=== PATIENT | male | born 1950 | race Caucasian/White ===

== ENCOUNTER 2017-04-28 12:50 | Inpatient (IN) | payer OTHER ==
[~2017-04-28] VITALS: Ht 172.7 cm; Wt 65.0 kg
[2017-04-28] MEDS ORDERED: SOD CHLORIDE 0.9% 500 ML IV STA (13:06)
[2017-04-28] MEDS ORDERED: ASPIRIN 81 MG TAB PO ONE (13:30)
[2017-04-28 13:35] LABS: BASOPHILS % 0.3 % (0.0-2.0); EOSINOPHILS # 0.2 10^3/ul (0.0-0.5); EOSINOPHILS % 1.7 % (0.0-7.0); HEMATOCRIT 42.7 % (42.0-52.0); HEMOGLOBIN 14.4 g/dl (14.0-18.0); LYMPHOCYTES # 1.8 10^3/ul (0.8-2.9); LYMPHOCYTES % 16.9 % (15.0-51.0); MEAN CORPUSCULAR HEMOGLOBIN 29.6 pg (29.0-33.0); MEAN CORPUSCULAR HGB CONC 33.7 g/dl (32.0-37.0); MEAN CORPUSCULAR VOLUME 87.7 fl (82.0-101.0); MEAN PLATELET VOLUME 8.6 fl (7.4-10.4); MONOCYTE # 0.5 10^3/ul (0.3-0.9); MONOCYTES % 4.6 % (0.0-11.0); NEUTROPHIL # 8.2 10^3/ul (1.6-7.5); NEUTROPHILS % 75.8 % (39.0-77.0); PLATELET COUNT 248 10^3/UL (140-415); RED BLOOD COUNT 4.87 10^6/ul (4.70-6.10); RED CELL DISTRIBUTION WIDTH 12.4 % (11.5-14.5); WHITE BLOOD COUNT 10.8 10^3/ul (4.8-10.8)
--- NOTE | 2017-04-28 13:37 | RADRPT ---
PROCEDURE: XR Chest. CLINICAL INDICATION: chest pain TECHNIQUE: Single frontal view of the chest was obtained COMPARISON: None FINDINGS: The heart and mediastinum are within normal limits. The lungs are clear. There is no pleural effusion or pneumothorax. RPTAT: AA IMPRESSION: No acute disease. .Romeml Dillon MD, Date Time Electronically viewed and signed by .Rommel Dillon MD, on 04/28/2017 13:37 .S/
--- NOTE | 2017-04-28 13:38 | ERD ---
ER Documentation Chief Complaint Chief Complaint cp and pressure that started this am at 1100 HPI 67-year-old pressure-like chest pain beginning at rest lasting for about 45 minutes, was substernal across the chest otherwise nonradiating and nonexertional. He denies previous episodes, denies fevers or chills, no cough, no vomiting or diarrhea. It occurred while he was driving his car, he called 911 and EMS administered aspirin and nitroglycerin with some relief and transported him here otherwise without complications. ROS All systems reviewed and are negative except as per history of present illness. Allergies Allergies: Coded Allergies: No Known Allergy (Unverified , 04/28/17) PMhx/Soc Hypertension Hx Alcohol Use: No Hx Substance Use: No Hx Tobacco Use: No Smoking Status: Unknown if ever smoked FmHx Family History: No diabetes Physical Exam Vitals Vital Signs Date Time Temp Pulse Resp B/P Pulse Ox O2 Delivery O2 Flow Rate FiO2 04/28/17 14:43 61 20 104/64 96 Room Air 04/28/17 13:26 97.9 71 12 115/73 94 Physical Exam GENERAL: Well-developed, well-nourished, well-hydrated, in no apparent distress , looks nontoxic in appearance HEENT: Moist mucous membranes, pink conjunctiva, no cervical spine tenderness or step-off deformities, no goiter, no jaundice or icterus, extraocular movements intact without pain. No submandibular induration, and no pharyngeal erythema NEURO: Alert and oriented 3, cranial nerves II through XII intact bilaterally, pupils equal round reactive to light, no focal deficits or facial asymmetry, sensation intact distally Strength 5/5 in upper and lower extremities bilaterally CARDIAC: Regular rate and rhythm, no murmurs rubs or gallops LUNGS: Clear bilaterally no wheezing crackles or stridor ABDOMEN: Soft nontender, no guarding, no rigidity, no rebound, no psoas sign no obturator sign. Normoactive bowel sounds SKIN: Warm and dry to touch, no abrasions, contusions, or hematomas, no lacerations, no ecchymosis, no target lesions, and without ulcers EXTREMITIES: No clubbing cyanosis or edema, calves are bilaterally symmetrical, no Homans sign, no popliteal cord sign. Distal pulses equal and bilateral PSYCH: Normal affect without agitation or irritability Result Diagram: 04/28/17 1310 04/28/17 1310 Results 24 hrs Laboratory Tests Test 04/28/17 13:10 White Blood Count 10.810^3/ul Red Blood Count 4.8710^6/ul Hemoglobin 14.4g/dl Hematocrit 42.7% Mean Corpuscular Volume 87.7fl Mean Corpuscular Hemoglobin 29.6pg Mean Corpuscular Hemoglobin Concent 33.7g/dl Red Cell Distribution Width 12.4% Platelet Count 60994^3/UL Mean Platelet Volume 8.6fl Neutrophils % 75.8% Lymphocytes % 16.9% Monocytes % 4.6% Eosinophils % 1.7% Basophils % 0.3% Nucleated Red Blood Cells % 0.0/100WBC Neutrophils # 8.210^3/ul Lymphocytes # 1.810^3/ul Monocytes # 0.510^3/ul Eosinophils # 0.210^3/ul Basophils # 0.010^3/ul Nucleated Red Blood Cells # 0.010^3/ul Sodium Level 141mmol/L Potassium Level 3.6mmol/L Chloride Level 106mmol/L Carbon Dioxide Level 27mmol/L Anion Gap 12 Blood Urea Nitrogen 12mg/dl Creatinine 0.87mg/dl Glucose Level 164mg/dl Calcium Level 9.3mg/dl Total Bilirubin 0.7mg/dl Direct Bilirubin 0.10mg/dl Indirect Bilirubin 0.6mg/dl Aspartate Amino Transf (AST/SGOT) 187IU/L Alanine Aminotransferase (ALT/SGPT) 137IU/L Alkaline Phosphatase 111IU/L Troponin I < 0.012ng/ml Total Protein 7.0g/dl Albumin 4.0g/dl Globulin 3.00g/dl Albumin/Globulin Ratio 1.33 Lipase Pending Current Medications Medications (Trade) Dose Ordered Sig/Bernie Route PRN Reason Start Time Stop Time Status Last Admin Dose Admin Sodium Chloride (NS) 500 ml @ 500 mls/hr Q1H STAT IV 04/28/17 13:06 04/28/17 14:05 DC 04/28/17 13:25 Aspirin (Aspirin) 324 mg ONCE ONCE PO 04/28/17 13:30 04/28/17 13:31 DC 04/28/17 13:25 Procedures/MDM IV line was established patient was placed on recovery coordinator rhythm strip revealed a sinus rhythm at about 70 bpm with upright P and T waves. Patient was afebrile EKG performed, read by me revealed a normal sinus rhythm at 70 bpm, first- degree atrial ventricular block at 208 ms, left axis deviation, narrow QRS complex, no concerning ST elevations or depressions noted. One AP view of the chest performed, read by me reveals no acute infiltrates, normal mediastinum, sharp costophrenic and cardiac borders, no air under the diaphragm. Otherwise unremarkable chest x-ray. I administered aspirin 162 mg p.o. for cardioprotective measures, 500 cc normal saline intravenously. CBC and electrolytes were unremarkable, liver function tests revealed transaminitis, troponin was negative. Patient had concerning chest pain today of new onset and has a family history of CAD and ND, he will be admitted to telemetry setting for continued medical management and cardiology consultation Departure Diagnosis: Primary Impression: Chest pain Chest pain type: unspecified Qualified Code: R07.9 - Chest pain, unspecified type Condition: ROBBIE Mora MD Apr 28, 2017 13:38
[2017-04-28 13:52] LABS: ALANINE AMINOTRANSFERASE 137 IU/L (13-69); ALBUMIN/GLOBULIN RATIO 1.33; ALKALINE PHOSPHATASE 111 IU/L (42-121); ANION GAP 12 (8-16); ASPARTATE AMINO TRANSFERASE 187 IU/L (15-46); BILIRUBIN,INDIRECT 0.6 mg/dl (0-1.1); BILIRUBIN,TOTAL 0.7 mg/dl (0.2-1.3); BLOOD UREA NITROGEN 12 mg/dl (7-20); CALCIUM 9.3 mg/dl (8.4-10.2); CARBON DIOXIDE 27 mmol/L (21-31); CHLORIDE 106 mmol/L (97-110); CREATININE 0.87 mg/dl (0.61-1.24); GLUCOSE 164 mg/dl (70-220); POTASSIUM 3.6 mmol/L (3.5-5.1); SODIUM 141 mmol/L (135-144)
[2017-04-28 14:38] LABS: TROPONIN-I < 0.012 ng/ml (0.00-0.12)
[2017-04-28] MEDS ORDERED: SOD CHLORIDE 0.9% 1,000 ML IV ONE (15:30)
--- NOTE | 2017-04-28 16:32 | RADRPT ---
PROCEDURE: CT abdomen and pelvis without IV contrast. CLINICAL INDICATION: Abdominal pain. Possible pancreatitis. TECHNIQUE: CT scan of the abdomen and pelvis without contrast was performed on the [employer] volumetric [address] scanner. The patient was scanned without intravenous contrast. Coronal and sagittal refo rmatted images were obtained from the axial source images. The CTDI vol is 14.03 mGy and the DLP is 859.49 mGy-cm. One or more of the following dose reduction techniques were used: Automated exposure control. Adjustment of the mA and/or kV according to patient size. Use of iterative reconstruction technique. COMPARISON: None. FINDINGS: CT abdomen: Mild dependent atelectasis in the lung bases is seen. The remaining lung bases are clear. The heart size is not enlarged and is without pericardial thickening or effusion. The liver is normal in size and density and is without focal mass or intrahepatic biliary dilatation . Simple cysts are seen in the left and right hepatic lobes of the liver. The largest cyst is seen i n the right hepatic lobe measuring 3.3 cm in size. The spleen is normal in size and homogeneous in d ensity. A small hiatal hernia is seen. The stomach is otherwise grossly unremarkable. Very mild inf lammatory changes in the pancreatic and peripancreatic region is seen. No pseudocysts or fluid colle ction is seen. The pancreatic duct is normal in caliber. The gallbladder and biliary tree are unrema rkable and there is no evidence for common bile duct dilatation. The adrenal glands are symmetric a nd normal. The kidneys are symmetrically unremarkable as well. Bilateral parapelvic renal cysts are seen. No renal calculus or obstructive uropathy or mass lesion is seen. The aorta is of normal in caliber. There is no retroperitoneal lymphadenopathy. The kenisha hepatis region is clear. Sigmoid and descending colon diverticulosis is seen without evidence of diverticul itis. The small and remainder of the large bowel and mesentery, as visualized, are otherwise unremar kable. The normal appendix is identified. CT pelvis: The pelvic organs are normal. The pelvic sidewalls and inguinal regions are clear. No pelvic mass, lymphadenopathy, or free fluid is seen. No acute inflammation is seen. The urinary bladder is wit hin normal limits. Degenerative spondylosis of the lumbar spine is seen. No osteolytic or osteoblastic lesion is detec bar. Small fat containing right inguinal hernia is seen. Surgical clips in the right groin region ar e seen. IMPRESSION: 1. Findings which may be consistent with the clinical history of acute pancreatitis as described ab ove. 2. Colonic diverticulosis without evidence of diverticulitis. 3. Small hiatal hernia. RPTAT: HPNM Physician Dano Date Time Electronically viewed and signed by Mat Loo Physician on 04/28/2017 16:32 /
[2017-04-28] MEDS ORDERED: ONDANSETRON 4 MG INJ IV PRN (17:00)
[2017-04-28] MEDS ORDERED: NACL 0.9% 3 ML SYG IV SCH (17:00)
[2017-04-28] MEDS ORDERED: morphine 2 MG INJ IV PRN (17:00)
--- NOTE | 2017-04-28 17:04 | HP ---
Date/Time of Note Date/Time of Note DATE: 04/28/17 TIME: 16:56 Assessment/Plan VTE Prophylaxis VTE Prophylaxis Intervention: ambulation Assessment/Plan Chief Complaint/Hosp Course 1. Acute idiopathic pancreatitis Lipase and CT abdomen indicate acute pancreatitis Etiology may be secondary to elevated triglycerides, medications versus gallstones We will check ultrasound of the abdomen, check a lipid panel Patient denies any alcohol abuse and does not appear to be an alcoholic but will check a toxicology screen to be thorough IV fluids N.p.o. except ice chips and sips of water 2. Hepatitis LFTs are elevated, check a hepatitis viral panel Follow-up on abdominal ultrasound Follow-up on LFTs in a.m. 3. BPH Hold home med 4. Hypothyroidism Hold Synthroid Check thyroid panel 5. Dyslipidemia Check lipid panel in a.m. Hold statin Prophylaxis: Ambulation Problems: HPI/ROS Admit Date/Time Admit Date/Time April 28, 2017 Hx of Present Illness Patient is 67-year-old male with a history of dyslipidemia, BPH and hypothyroidism. Patient awoke this morning with severe midepigastric abdominal pain, patient denies any nausea vomiting or changes in his bowel habits. Patient denies any unintentional weight loss or any history of alcohol abuse. Denies having any such symptoms in the past and has no other complaints at this time. In the ED lipase was notably elevated, patient denies any history of pancreatitis. Of note patient states that he had congestion with fevers for the past 4 days now and has been taking NyQuil every evening for the past 4 nights. ROS Constitutional: improved, no complaints Eyes: no complaints ENT: no complaints Respiratory: no complaints Cardiovascular: no complaints Gastrointestinal: pain Genitourinary: no complaints Musculoskeletal: no complaints Skin: no complaints Neurologic: no complaints Endocrine: no complaints Lymphatic: no complaints Psychological: nl mood/affect, no complaints Immunologic: no complaints PMH/Family/Social Past Medical History Hypothyroidism, dyslipidemia and BPH Past Surgical History Past Surgical Hx: no surgical history Family History Significant Family History: other (Father with ND in his 60s) Social History Alcohol Use: none Smoking Status: Never smoker Drug Use: none Exam/Review of Systems Vital Signs Vitals Vital Signs Date Time Temp Pulse Resp B/P Pulse Ox O2 Delivery O2 Flow Rate FiO2 04/28/17 16:44 72 17 111/57 97 Room Air 04/28/17 13:26 97.9 Exam Constitutional: alert, oriented Respiratory: clear to auscultation Cardiovascular: regular rate and rhythm Gastrointestinal: soft, tender, No distended Musculoskeletal: nl extremities to inspection Labs Result Diagram: 04/28/17 1310 04/28/17 1310 PARKER LINDSAY Apr 28, 2017 17:04
--- NOTE | 2017-04-28 17:26 | RADRPT ---
PROCEDURE: US Abdomen (right upper quadrant). CLINICAL INDICATION: Right upper quadrant abdomen pain. TECHNIQUE: Multiple real-time longitudinal and transverse images of the right upper quadrant of th e abdomen were acquired utilizing a curved array transducer. Images were reviewed on a high-resoluti on PACS workstation. COMPARISON: None FINDINGS: The liver is normal in size and normal in echogenicity. There is no focal hepatic lesion. Color Doppler and pulsed Doppler sonography demonstrate normal a ntegrade flow in the portal vein. Gallstones are present in the gallbladder. There is no gallbladder wall thickening or fluid around t he gallbladder. The bile ducts are normal with the common bile duct measuring 4.8 mm in diameter. The visualized portions of the pancreas are unremarkable with obscuration of the tail of the pancrea s. No free fluid is present. The right kidney measures 10.3 cm. There is normal echogenicity of the right kidney. There is no perinephric fluid collection. No hydronephrosis, mass, or calculus is seen. IMPRESSION: 1. Gallstones in the gallbladder. No evidence of cholecystitis. 2. Otherwise unremarkable right upper quadrant abdomen ultrasound. RPTAT: QQ .Clarence Garcia MD, MD Date Time Electronically viewed and signed by .Clarence Garcia MD, on 04/28/2017 17:25 .R/
[2017-04-28 18:52] VITALS: BP 125/68; PULSE 66; RESP 16; Ht 172.7 cm; Wt 65.0 kg
[2017-04-28 20:00] VITALS: PULSE 72
[2017-04-28] MEDS: D5W-0.45 NACL + KCL 20 MEQ 1,000 ML IV SCH (20:00)
[2017-04-28 23:25] VITALS: BP 120/63; PULSE 58; RESP 18
[2017-04-28 23:35] VITALS: BP 107/59; PULSE 70; RESP 16
[2017-04-29] VITALS (8 sets, daily range): BP systolic 105–112; BP diastolic 56–67; PULSE 2–80; RESP 16–17
[2017-04-29] MEDS: D5W-0.45 NACL + KCL 20 MEQ 1,000 ML IV SCH ×4 (04:00→22:30)
[2017-04-29] MEDS: PANTOPRAZOLE 40 MG INJ IV SCH (05:47)
[2017-04-29 05:50] LABS: HAAIG REFLEX REFLEX FILED
[2017-04-29 05:59] LABS: BASOPHILS % 0.1 % (0.0-2.0); EOSINOPHILS % 0.1 % (0.0-7.0); HEMATOCRIT 39.7 % (42.0-52.0); HEMOGLOBIN 13.5 g/dl (14.0-18.0); LYMPHOCYTES # 1.4 10^3/ul (0.8-2.9); LYMPHOCYTES % 8.6 % (15.0-51.0); MEAN CORPUSCULAR HEMOGLOBIN 29.8 pg (29.0-33.0); MEAN CORPUSCULAR VOLUME 87.6 fl (82.0-101.0); MEAN PLATELET VOLUME 9.1 fl (7.4-10.4); MONOCYTE # 0.7 10^3/ul (0.3-0.9); MONOCYTES % 4.3 % (0.0-11.0); NEUTROPHIL # 13.6 10^3/ul (1.6-7.5); NEUTROPHILS % 86.4 % (39.0-77.0); PLATELET COUNT 241 10^3/UL (140-415); RED BLOOD COUNT 4.53 10^6/ul (4.70-6.10); RED CELL DISTRIBUTION WIDTH 12.8 % (11.5-14.5); WHITE BLOOD COUNT 15.7 10^3/ul (4.8-10.8)
[2017-04-29 06:47] LABS: ALBUMIN 3.2 g/dl (3.3-4.9); ALBUMIN/GLOBULIN RATIO 1.03; BILIRUBIN,DIRECT 1.7 mg/dl (0.00-0.20); BILIRUBIN,INDIRECT 1.5 mg/dl (0-1.1); BILIRUBIN,TOTAL 3.2 mg/dl (0.2-1.3); CALCIUM 8.8 mg/dl (8.4-10.2); CHOL/HDL RATIO 3.9 RATIO; CREATININE 0.92 mg/dl (0.61-1.24); MAGNESIUM 1.8 mg/dl (1.7-2.5); PHOSPHORUS 1.9 mg/dl (2.5-4.9); POTASSIUM 3.9 mmol/L (3.5-5.1); TOTAL PROTEIN 6.3 g/dl (6.1-8.1)
[2017-04-29 06:53] LABS: T3 UPTAKE 33.9 % (23.5-40.5)
[2017-04-29 08:39] LABS: HEPATITIS B CORE ANTIBODY NEGATIVE (NEGATIVE)
[2017-04-29] MEDS ORDERED: POTASSIUM PHOSPHATE 20 MEQ in SOD CHLORIDE 0.9% 250 ML IVPB ONE (13:00)
--- NOTE | 2017-04-29 17:38 | PN ---
Date/Time of Note Date/Time of Note DATE: 04/29/17 TIME: 17:35 Assessment/Plan VTE Prophylaxis VTE Prophylaxis Intervention: ambulation Lines/Catheters IV C[facility]ter Type [facility]from [facility]): Saline Lock Assessment/Plan Chief Complaint/Hosp Course 1. Acute gallstone pancreatitis Patient's pain has improved and is now tolerating a p.o. diet Patient does not want a cholecystectomy at this time and states that he will have it done if he has another episode of gallstone pancreatitis Lipase and CT abdomen indicate acute pancreatitis IV fluids 2. Hepatitis Viral panel is negative Ultrasound of the abdomen shows no CBD dilation Monitor in a.m. 3. BPH Continue home med 4. Hypothyroidism Continue Synthroid Thyroid panel within normal limits 5. Dyslipidemia Lipid panel within normal limits Continue statin Prophylaxis: Ambulation Discharge planning: Anticipate DC home in a.m. Problems: Subjective 24 Hr Interval Summary Constitutional: no complaints Exam/Review of Systems Vital Signs Vitals Vital Signs Date Time Temp Pulse Resp B/P Pulse Ox O2 Delivery O2 Flow Rate FiO2 04/29/17 16:00 65 04/29/17 12:00 99.2 17 112/63 98 Room Air Exam Constitutional: alert, oriented Respiratory: clear to auscultation Cardiovascular: regular rate and rhythm Gastrointestinal: non-tender, soft, No distended Musculoskeletal: nl extremities to inspection Results Result Diagram: 04/29/172 04/29/17 0452 Results 24 hrs Laboratory Tests Test 04/29/17 04:52 White Blood Count 15.7 #H Red Blood Count 4.53 L Hemoglobin 13.5 L Hematocrit 39.7 L Mean Corpuscular Volume 87.6 Mean Corpuscular Hemoglobin 29.8 Mean Corpuscular Hemoglobin Concent 34.0 Red Cell Distribution Width 12.8 Platelet Count 241 Mean Platelet Volume 9.1 Neutrophils % 86.4 H Lymphocytes % 8.6 L Monocytes % 4.3 Eosinophils % 0.1 Basophils % 0.1 Nucleated Red Blood Cells % 0.0 Neutrophils # 13.6 H Lymphocytes # 1.4 Monocytes # 0.7 Eosinophils # 0.0 Basophils # 0.0 Nucleated Red Blood Cells # 0.0 Sodium Level 141 Potassium Level 3.9 Chloride Level 109 Carbon Dioxide Level 24 Anion Gap 12 Blood Urea Nitrogen 11 Creatinine 0.92 Glucose Level 126 Hemoglobin A1c 5.6 Calcium Level 8.8 Phosphorus Level 1.9 L Magnesium Level 1.8 Total Bilirubin 3.2 #H Direct Bilirubin 1.70 #H Indirect Bilirubin 1.5 H Aspartate Amino Transf (AST/SGOT) 385 #H Alanine Aminotransferase (ALT/SGPT) 432 H Alkaline Phosphatase 143 H Total Protein 6.3 Albumin 3.2 L Globulin 3.10 Albumin/Globulin Ratio 1.03 Triglycerides Level 57 Cholesterol Level 121 LDL Cholesterol, Calculated 79 HDL Cholesterol 31 Cholesterol/HDL Ratio 3.9 Lipase 2387 H Free Thyroxine Index 3.02 Thyroxine (T4) 8.9 Triiodothyronine (T3) Uptake 33.9 Hepatitis B Surface Antigen NEGATIVE Hepatitis B Core Total Antibody NEGATIVE Hepatitis C Antibody NEGATIVE Medications Medications Current Medications Potassium Chloride/Dextrose/ Sod Cl (D5-1/2ns + KCl 20 Meq) 1,000 ml @ 125 mls/ hr Q8H IV Last administered on 04/29/17 14:24; Admin Dose 125 MLS/HR; Start 04/28/17 at 16:51 Ondansetron HCl (Zofran Inj) 4 mg Q6H PRN IV NAUSEA AND/OR VOMITING; Start at 17:00 Morphine Sulfate (morphine) 2 mg Q4H PRN IV SEVERE PAIN LEVEL 7-10; Start at 17:00 Pantoprazole (Protonix Iv) 40 mg DAILY@06 IV Last administered on 04/29/17 05 :47; Admin Dose 40 MG; Start 04/29/17 at 06:00 PARKER LINDSAY Apr 29, 2017 17:38
[2017-04-30 00:10] VITALS: BP 109/58; PULSE 66; RESP 16
[2017-04-30 04:25] VITALS: PULSE 64
[2017-04-30 05:15] VITALS: BP 123/71; PULSE 69; RESP 16
[2017-04-30] MEDS: PANTOPRAZOLE 40 MG INJ IV SCH (06:29)
[2017-04-30 07:42] LABS: BASOPHILS % 0.3 % (0.0-2.0); EOSINOPHILS # 0.1 10^3/ul (0.0-0.5); EOSINOPHILS % 1.1 % (0.0-7.0); HEMATOCRIT 39.4 % (42.0-52.0); HEMOGLOBIN 13.4 g/dl (14.0-18.0); LYMPHOCYTES % 12.1 % (15.0-51.0); MEAN CORPUSCULAR HEMOGLOBIN 29.9 pg (29.0-33.0); MEAN CORPUSCULAR VOLUME 87.9 fl (82.0-101.0); MEAN PLATELET VOLUME 8.9 fl (7.4-10.4); MONOCYTE # 0.5 10^3/ul (0.3-0.9); MONOCYTES % 5.8 % (0.0-11.0); NEUTROPHIL # 6.4 10^3/ul (1.6-7.5); NEUTROPHILS % 80.2 % (39.0-77.0); PLATELET COUNT 213 10^3/UL (140-415); RED BLOOD COUNT 4.48 10^6/ul (4.70-6.10); RED CELL DISTRIBUTION WIDTH 13.1 % (11.5-14.5); WHITE BLOOD COUNT 7.9 10^3/ul (4.8-10.8)
[2017-04-30 08:00] VITALS: BP 112/70; PULSE 64; PULSE 79; RESP 17
[2017-04-30 08:06] LABS: ALBUMIN 3.3 g/dl (3.3-4.9); ALBUMIN/GLOBULIN RATIO 1.17; BILIRUBIN,DIRECT 0.9 mg/dl (0.00-0.20); BILIRUBIN,INDIRECT 0.9 mg/dl (0-1.1); BILIRUBIN,TOTAL 1.8 mg/dl (0.2-1.3); CALCIUM 8.8 mg/dl (8.4-10.2); CREATININE 0.88 mg/dl (0.61-1.24); TOTAL PROTEIN 6.1 g/dl (6.1-8.1)
[2017-04-30 08:08] LABS: MAGNESIUM 1.9 mg/dl (1.7-2.5); PHOSPHORUS 2.3 mg/dl (2.5-4.9)
[2017-04-30] MEDS: D5W-0.45 NACL + KCL 20 MEQ 1,000 ML IV SCH (08:51)
--- NOTE | 2017-04-30 11:17 | PDOCDIS ---
Discharge Instructions CONDITION Patient Condition: Good HOME CARE INSTRUCTIONS: Diet Instructions: Regular ACTIVITY: Activity Restrictions: No Restrictions FOLLOW UP/APPOINTMENTS Follow-up Plan F/U WITH YOUR PCP IN 1-2 WEEKS PARKER LINDSAY Apr 30, 2017 11:17
[2017-04-30 11:55] VITALS: BP 118/70; PULSE 60; RESP 17
[2017-04-30 12:00] VITALS: PULSE 65
[2017-04-30] MEDS ORDERED: NEUTRA-PHOS 250 MG PACKET PO ONE (12:30)
--- NOTE | 2017-04-30 15:08 | DS ---
Date/Time of Note Date/Time of Note DATE: 04/30/17 TIME: 15:00 Discharge Summary Admission/Discharge Info Admit Date/Time Apr 28, 2017 at 14:30 Discharge Date/Time April 30, 2017 Discharge Diagnosis 1. Acute gallstone pancreatitis-improved Patient's pain has resolved and is now tolerating a p.o. diet Patient does not want a cholecystectomy at this time and states that he will have it done if he has another episode of gallstone pancreatitis Lipase and CT abdomen indicate acute pancreatitis Status post IV fluids 2. Hepatitis-LFTs have come down Etiology may be from a stone that has not passed Viral panel is negative Ultrasound of the abdomen shows no CBD dilation 3. BPH Continue home med 4. Hypothyroidism Continue Synthroid Thyroid panel within normal limits 5. Dyslipidemia Lipid panel within normal limits Continue statin Patient Condition: Good Hospital Course Patient is 67-year-old male with a history of dyslipidemia, BPH and hypothyroidism. Patient presented with abdominal pain secondary to acute pancreatitis. Etiology was likely secondary to gallstones, patient has a history of alcohol abuse and triglycerides were normal. Lipase did trend down the patient tolerated p.o. diet. Patient notes he is also elevated was likely secondary to a stone in the CBD that had passed. Ultrasound of the abdomen showed cholelithiasis but no cholecystitis and no CBD dilation. Patient was offered surgery but stated that rather not have at this time and will have surgery if he has another episode of pancreatitis. On the day of discharge patient's vitals, labs and physical exam are stable he had no acute complaints and questions are answered. Home Meds No Active Prescriptions or Reported Meds Follow-up Plan F/U WITH YOUR PCP IN 1-2 WEEKS Primary Care Provider Á[place]el Hill Time spent on discharge: > 30 minutes PARKER LINDSAY Apr 30, 2017 15:08
== END 2017-04-30 12:30 | disposition home or self-care (01) | DRG 440 ==
LOC: E/R 12:50 → MS3 14:30
PROVIDERS: ADMIT Hospitalist; ATTEND Hospitalist
DX: K85.10 Biliary acute pancreatitis without necrosis or infection (principal); K75.9 Inflammatory liver disease, unspecified; N40.0 Benign prostatic hyperplasia without lower urinary tract symptoms; E03.9 Hypothyroidism, unspecified; E78.5 Hyperlipidemia, unspecified; F10.10 Alcohol abuse, uncomplicated
CPT/HCPCS: 36415; 71010; 74176; 76705; 80053; 80061; 80306; 83036; 83690; 83735; 84100; 84436; 84479; 84484; 85025; 86704; 86709; 86803; 87340; C9113; J3480; J7030; J7040; J7050